=== PATIENT | female | born 1940 | race Hispanic/Latino ===

== ENCOUNTER 2017-08-19 21:58 | Emergency (ER) | payer OTHER ==
[2017-08-19 22:54] LABS: Absolute Lymphocytes (CBC) 1.9 K/uL (0.7-4.9); Absolute Monocytes 0.5 K/uL (0.1-1.3); Absolute Neutrophil 3.3 K/uL (1.8-8.0); Basophils % 0.5 % (0-1.3); Eosinophils % 3.4 % (0-4.4); Hematocrit 36.2 % (36.0-45.0); Lymphocytes % 32.4 % (15.3-44.8); MCH 25.8 pg (27.0-35.0); MCV 80.9 fL (80-100); Monocytes % 8.3 % (3.3-12.3); RBC Red Blood Cell Count 4.48 M/uL (3.86-4.86)
[2017-08-19 23:01] LABS: Protime INR 0.91
[2017-08-19 23:12] LABS: Albumin 3.6 g/dL (3.2-5.5); Bilirubin Direct 0.1 mg/dL (0-0.2); Bilirubin Total 0.2 mg/dL (0.3-1.2); Protein, Total 6.7 g/dL (6.0-8.3)
--- NOTE | 2017-08-19 23:54 | EDPHYS ---
Physician Documentation [facility] Name: Yesi Cantu Age: 77 yrs Sex: Female : 1940 Arrival Date: 08/19/2017 Time: 21:59 Bed 6 Private MD: ED Physician Pee Lakhani HPI: 08/19 22:42 This 77 yrs old Female presents to ER via Ambulatory with complaints of Chest jr8 Pain. 22:42 The patient or guardian reports chest pain that is located primarily in the anterior jr8 chest wall, right. Onset: acutely, today. The pain does not radiate. Associated signs and symptoms: The patient has no apparent associated signs or symptoms. The chest pain is described as sharp. Duration: The patient or guardian reports a single episode. Modifying factors: The symptoms are alleviated by nothing. the symptoms are aggravated by palpation of area. Severity of pain: At its worst the pain was moderate in the emergency department the pain has improved. The patient has not experienced similar symptoms in the past. The patient has not recently seen a physician. Patient stated that she started to feel right lower chest pain under right breast. Pain with movement and palpation. Denies trauma to region. Stated that she had lifted heavy objects the other day but did not feel a strain. Denies n/v, diaphoresis, or radiation of pain. Historical: - Allergies: 22:08 Aspirin; bp 22:08 Hydrocodone-Acetaminophen; bp 22:14 Azithromycin; bp 22:14 Sulfamethazine; bp 22:14 Ciprofloxacin; bp 22:14 Amoxicillin; bp 22:14 Sulfa (Sulfonamide Antibiotics); bp - Home Meds: 22:14 Synthroid 50 mcg Oral tab 1 tab once daily [Active]; metformin 500 mg Oral tab 1 tab 2 bp times per day [Active]; clopidogrel 75 mg oral tab 1 tab once daily [Active]; fenofibric acid 105 mg oral tab 1 tab once daily [Active]; sertraline 50 mg oral tab 1 tab twice a day [Active]; - PMHx: 22:08 Dementia; Diabetes - NIDDM; bp - Immunization history:: Adult Immunizations up to date. - Social history:: Smoking status: Patient/guardian denies using tobacco. ROS: 22:42 Eyes: Negative for injury, pain, redness, and discharge, ENT: Negative for injury, jr8 pain, and discharge, Neck: Negative for injury, pain, and swelling, Respiratory: Negative for shortness of breath, cough, wheezing, and pleuritic chest pain, Abdomen/GI: Negative for abdominal pain, nausea, vomiting, diarrhea, and constipation, Back: Negative for injury and pain, MS/Extremity: Negative for injury and deformity, Skin: Negative for injury, rash, and discoloration, Neuro: Negative for headache, weakness, numbness, tingling, and seizure. 22:42 Cardiovascular: Positive for chest pain, Negative for edema, orthopnea, palpitations, paroxysmal nocturnal dyspnea. Exam: 22:42 Eyes: Pupils equal round and reactive to light, extra-ocular motions intact. Lids and jr8 lashes normal. Conjunctiva and sclera are non-icteric and not injected. Cornea within normal limits. Periorbital areas with no swelling, redness, or edema. ENT: Nares patent. No nasal discharge, no septal abnormalities noted. Tympanic membranes are normal and external auditory canals are clear. Oropharynx with no redness, swelling, or masses, exudates, or evidence of obstruction, uvula midline. Mucous membranes moist. Neck: Trachea midline, no thyromegaly or masses palpated, and no cervical lymphadenopathy. Supple, full range of motion without nuchal rigidity, or vertebral point tenderness. No Meningismus. Cardiovascular: Regular rate and rhythm with a normal S1 and S2. No gallops, murmurs, or rubs. Normal PMI, no JVD. No pulse deficits. Respiratory: Lungs have equal breath sounds bilaterally, clear to auscultation and percussion. No rales, rhonchi or wheezes noted. No increased work of breathing, no retractions or nasal flaring. Abdomen/GI: Soft, non-tender, with normal bowel sounds. No distension or tympany. No guarding or rebound. No evidence of tenderness throughout. Back: No spinal tenderness. No costovertebral tenderness. Full range of motion. Skin: Warm, dry with normal turgor. Normal color with no rashes, no lesions, and no evidence of cellulitis. MS/ Extremity: Pulses equal, no cyanosis. Neurovascular intact. Full, normal range of motion. Neuro: Awake and alert, GCS 15, oriented to person, place, time, and situation. Cranial nerves II-XII grossly intact. Motor strength 5/5 in all extremities. Sensory grossly intact. Cerebellar exam normal. Normal gait. 22:42 Chest/axilla: Inspection: normal, Palpation: tenderness, that is moderate, of the right anterior chest wall just inferior to breast region . Vital Signs: 22:08 BP 137 / 65; Pulse 71; Resp 19; Temp 98.1; Pulse Ox 95% ; Weight 63.5 kg; Height 5 ft. bp 3 in. (160.02 cm); 22:45 BP 139 / 67; Pulse 72; Resp 18; Pulse Ox 95% ; bp 23:45 BP 148 / 72; Pulse 77; Resp 13; Pulse Ox 97% ; bp 22:08 Body Mass Index 24.80 (63.50 kg, 160.02 cm) bp MDM: 22:00 Patient medically screened. jr8 23:53 Data reviewed: vital signs, nurses notes, lab test result(s), EKG, radiologic studies, jr8 plain films, and as a result, I will discharge patient. Data interpreted: Pulse oximetry: on room air is 95 %. Interpretation: normal. Counseling: I had a detailed discussion with the patient and/or guardian regarding: the historical points, exam findings, and any diagnostic results supporting the discharge/admit diagnosis, lab results, radiology results, the need for outpatient follow up, a [employer], a family practitioner, to return to the emergency department if symptoms worsen or persist or if there are any questions or concerns that arise at home. 08/19 22:17 Order name: Basic Metabolic Panel; Complete Time: 23: [facility] 08/19 22:17 Order name: BNP; Complete Time: 23: 08/19 22:17 Order name: CBC with Diff; Complete Time: 23:05 08/19 22:17 Order name: LFT's; Complete Time: 23:14 08/19 22:17 Order name: Magnesium; Complete Time: 23:14 08/19 22:17 Order name: PT-INR; Complete Time: 23:05 08/19 22:17 Order name: Troponin (emerg Dept Use Only); Complete Time: 23:14 [facility] 08/19 22:17 Order name: XRAY Chest (1 view) [facility] 08/19 22:17 Order name: EKG; Complete Time: 22:27 08/19 22:17 Order name: Cardiac monitoring; Complete Time: 22:18 08/19 22:17 Order name: EKG - Nurse/Tech; Complete Time: :18 08/19 22:17 Order name: IV Saline Lock; Complete Time: :08/19 22:17 Order name: Labs collected and sent; Complete Time: :18 08/19 22:17 Order name: O2 Per Protocol; Complete Time: :08/19 22:17 Order name: O2 Sat Monitoring; Complete Time: : Administered Medications: No medications were administered Disposition: 08/19/17 23:54 Discharged to Home. Impression: Chest pain, unspecified. - Condition is Stable. - Discharge Instructions: Nonspecific Chest Pain, Chest Wall Pain. - Medication Reconciliation Form, Thank You Letter, Antibiotic Education, Prescription Opioid Use form. - Follow up: Private Physician; When: 2 - 3 days; Reason: Recheck today's complaints, Continuance of care, Re-evaluation by your physician. - Problem is new. - Symptoms have improved. Addendum: 08/21/2017 06:24 Co-signature as Attending Physician, Pee Lakhani MD. g s Signatures: Dispatcher [employer] EDMS Flo Quinn PA PA jr8 Pee Lakhani MD MD gs Peltier, Brian, RN RN bp
--- NOTE | 2017-08-19 23:54 | ER ---
Nurse's Notes [facility] Name: Yesi Cantu Age: 77 yrs Sex: Female : 1940 Arrival Date: 08/19/2017 Time: 21:59 Bed 6 Private MD: Diagnosis: Chest pain, unspecified Presentation: 08/19 22:06 Presenting complaint: Patient states: I WAS WALKING THE DOG AND THEN MY CHEST FELT bp TIGHT AND I COULDN'T CATCH MY BREATH. Transition of care: patient was not received from another setting of care. Onset of symptoms was August 19, 2017 at 15:00. Care prior to arrival: None. 22:06 Method Of Arrival: Ambulatory bp 22:06 Acuity: TOD 3 bp Triage Assessment: 22:08 General: Appears in no apparent distress. uncomfortable, well groomed, Behavior is bp calm, cooperative, appropriate for age. Pain: Complains of pain in right breast Also complains of shortness of breath. EENT: No deficits noted. Neuro: Level of Consciousness is awake, alert, obeys commands, Oriented to person, place, time, situation, Appropriate for age. Cardiovascular: Rhythm is sinus rhythm Chest pain is described as mild, is located in right began 3 hours prior to arrival. Respiratory: Reports shortness of breath at rest Airway is patent Respiratory effort is even, unlabored, Respiratory pattern is regular, symmetrical. GI: No signs and/or symptoms were reported involving the gastrointestinal system. : No signs and/or symptoms were reported regarding the genitourinary system. Derm: No deficits noted. Musculoskeletal: Circulation, motion, and sensation intact. Range of motion: intact in all extremities. Historical: - Allergies: 22:08 Aspirin; bp 22:08 Hydrocodone-Acetaminophen; bp 22:14 Azithromycin; bp 22:14 Sulfamethazine; bp 22:14 Ciprofloxacin; bp 22:14 Amoxicillin; bp 22:14 Sulfa (Sulfonamide Antibiotics); bp - Home Meds: 22:14 Synthroid 50 mcg Oral tab 1 tab once daily [Active]; metformin 500 mg Oral tab 1 tab 2 bp times per day [Active]; clopidogrel 75 mg oral tab 1 tab once daily [Active]; fenofibric acid 105 mg oral tab 1 tab once daily [Active]; sertraline 50 mg oral tab 1 tab twice a day [Active]; - PMHx: 22:08 Dementia; Diabetes - NIDDM; bp - Immunization history:: Adult Immunizations up to date. - Social history:: Smoking status: Patient/guardian denies using tobacco. Screenin:15 Abuse screen: Denies threats or abuse. Denies injuries from another. Nutritional bp screening: No deficits noted. Tuberculosis screening: No symptoms or risk factors identified. Fall Risk None identified. Assessment: 22:14 General: SEE TRIAGE NOTE. 77YO HF WITH H/O DEMENTIA AND NIDDM PRESENTS WITH CONSTANT bp "TIGHT" CP WITH SOB SINCE WALKING DOG. 22:15 Pain: Pain does not radiate. Pain began suddenly, 4 hours ago. bp 22:45 Reassessment: RADIOLOGY AT B/S. LAB RESULTS PENDING. VS STABLE ON MONITOR. bp 23:45 Reassessment: PT D/C HOME AMBULATORY WITH FAMILY, DX WITH UNSPECIFIC CHEST PAIN. bp Vital Signs: 22:08 BP 137 / 65; Pulse 71; Resp 19; Temp 98.1; Pulse Ox 95% ; Weight 63.5 kg; Height 5 ft. bp 3 in. (160.02 cm); 22:45 BP 139 / 67; Pulse 72; Resp 18; Pulse Ox 95% ; bp 23:45 BP 148 / 72; Pulse 77; Resp 13; Pulse Ox 97% ; bp 22:08 Body Mass Index 24.80 (63.50 kg, 160.02 cm) bp ED Course: 21:59 Patient arrived in ED. do 22:00 Craig Hutchinson, HO is Primary Nurse. bp 22:00 Flo Quinn PA is PHCP. jr8 22:00 Pee Lakhani MD is Attending Physician. jr8 22:07 Triage completed. bp 22:14 Arm band placed on. bp 22:15 Patient has correct armband on for positive identification. Placed in gown. Bed in low bp position. Call light in reach. Side rails up X2. Adult w/ patient. compliance monitor on. Pulse ox on. NIBP on. 22:15 Inserted saline lock: 20 gauge in right antecubital area, using aseptic technique. jb5 Blood collected. 22:57 X-ray completed. Portable x-ray completed in exam room. Patient tolerated procedure la2 well. 22:57 XRAY Chest (1 view) Sent. bp 23:01 XRAY Chest (1 view) In Process Unspecified. EDMS 23:45 No provider procedures requiring assistance completed. IV discontinued, intact, bp bleeding controlled, No redness/swelling at site. Pressure dressing applied. Patient maintains SpO2 saturation greater than 95% on room air. Administered Medications: No medications were administered Outcome: 23:54 Discharge ordered by MD. larson 08/20 00:00 Discharged to home ambulatory, with family. bp Condition: stable Discharge instructions given to patient, Instructed on discharge instructions, follow up and referral plans. Demonstrated understanding of instructions, follow-up care. 00:00 Patient left the ED. bp Signatures: Dispatcher [employer] EDMS Flo Quinn PA PA jr8 Tracy Cuellar Jennifer jb5 Ardoin, Leslie la2 Peltier, Brian, HO RN bp Corrections: (The following items were deleted from the chart) 08/19 22:18 22:08 63.5 kg; Height 5 ft. 3 in.; BMI: 24.8; bp bp
--- NOTE | 2017-08-20 10:11 | RAD REPORT ---
EXAM DESCRIPTION: RAD - Chest Single View - 08/19/2017 11:03 pm CLINICAL HISTORY: Chest pain COMPARISON: None. TECHNIQUE: AP portable chest image was obtained 2257 hours . FINDINGS: Lung volumes are relatively low accentuating lung markings. No consolidation, mass or sign ificant failure. Heart and vasculature are normal. No measurable pleural effusion and no pneumothorax . No gross bony abnormality seen. No acute aortic findings suspected. IMPRESSION: Shallow inspiration film felt to be without an acute cardiopulmonary finding.
--- NOTE | 2017-08-20 22:36 | EKG ---
Test Date: 2017-08-19 Test Time: 22:05:16 Tools Developer: LONNIE MEASUREMENT RESULTS: Intervals: Rate: 73 OH: 138 QRSD: 84 QT: 418 QTc: 460 [place]: P: 8 OH: 138 QRS: -4 T: 42 INTERPRETIVE STATEMENTS: Normal sinus rhythm Normal ECG No previous ECG available for comparison Electronically Signed On 08-20-17 22:35:40 CDT by Yao Beasley
== END 2017-08-20 | disposition home or self-care (01) ==
LOC: ER 21:58
DX: R07.9 Chest pain, unspecified (principal); E11.9 Type 2 diabetes mellitus without complications; F03.90 Unspecified dementia, unspecified severity, without behavioral disturbance, psychotic disturbance, mood disturbance, and anxiety; Z88.1 Allergy status to other antibiotic agents; Z88.2 Allergy status to sulfonamides; Z88.3 Allergy status to other anti-infective agents; Z88.5 Allergy status to narcotic agent; Z88.6 Allergy status to analgesic agent
CPT/HCPCS: 36415; 71045; 80048; 80076; 83735; 83880; 84484; 85025; 85610; 93005; 99285

== ENCOUNTER 2024-09-21 10:10 | Emergency (ER) | payer OTHER ==
[2024-09-21 11:06] LABS: Absolute Eosinophils 0.1 K/uL (0-0.5); Absolute Lymphocytes (CBC) 1.7 K/uL (0.7-4.9); Absolute Monocytes 0.6 K/uL (0.1-1.3); Basophils % 0.4 % (0-1.3); Eosinophils % 1.9 % (0-4.4); Hematocrit 35.9 % (36.0-45.0); Hemoglobin 12.4 g/dL (12.0-15.0); Lymphocytes % 26.5 % (15.3-44.8); MCH 30.1 pg (27.0-35.0); MCHC 34.5 g/dL (32.0-36.0); MCV 87.4 fL (80-100); MPV 8.3 fL (7.6-11.3); Monocytes % 9.3 % (3.3-12.3); Neutrophils % 61.9 % (41.7-73.7); Nucleated Red Blood Cells % 0.1 % (0-0); Platelets 205 thou/uL (152-406); RBC Red Blood Cell Count 4.11 M/uL (3.86-4.86)
[2024-09-21 11:13] LABS: PT Prothrombin Time 11.7 SECONDS (10-13.0); PTT, Activated Partial Thromb 34.8 SECONDS (27.2-37.4); Protime INR 1.03
[2024-09-21] MEDS ORDERED: NA CHLORIDE 0.9% 500 ML ONE (11:15)
[2024-09-21 11:24] LABS: ALT/SGPT 22 U/L (13-56); AST/SGOT 18 U/L (15-37); Albumin 3.5 g/dL (3.4-5.0); Albumin/Globulin Ratio 0.9 (1.1-1.8); Alkaline Phosphatase 74 U/L (45-117); Anion Gap 9.6 mEq/L (5.0-15.0); BUN Blood Urea Nitrogen 19 mg/dL (7-18); Bicarbonate 29 mEq/L (21-32); Bilirubin Total 0.4 mg/dL (0.2-1.0); Globulin 3.7 g/dL (2.3-3.5); Glomerular Filtration Rate 72 ml/min (=/>90); Glucose Level 98 mg/dL (74-106); Magnesium 2.1 mg/dL (1.6-2.4); Potassium 3.6 mEq/L (3.5-5.1); Protein, Total 7.2 g/dL (6.4-8.2); Sodium Level 142 mEq/L (136-145); Troponin High Sensitivity 5.4 pg/mL (<58.9)
[2024-09-21 11:25] LABS: Bilirubin Direct < 0.2 mg/dL (0-0.2); Bilirubin Indirect, Calculated 0.2 mg/dL (0.2-0.8)
--- NOTE | 2024-09-21 11:53 | RAD REPORT ---
EXAM: Chest Single View HISTORY: 84 years Female dizziness COMPARISON: 08/19/2017 FINDINGS: LUNGS/PLEURA: The lungs are clear. No pleural effusions or pneumothorax. No pulmonary edema. CARDIAC/MEDIASTINUM: The cardiac silhouette is within normal limits. UPPER ABDOMEN: No significant abnormality. BONES: No acute abnormality. LINES/TUBES/OTHER: N/A IMPRESSION: No evidence of acute cardiopulmonary disease.
--- NOTE | 2024-09-21 12:11 | RAD REPORT ---
EXAMINATION: Head Brain Wo Cont CLINICAL INDICATION: Female, 84 years old.DIZZINESS TECHNIQUE: Axial CT images from the skull base to the vertex without intravenous contrast. Coronal an d sagittal reformatted images were created from the data set. One or more of the following dose reduction techniques were used: Automated exposure control, adjustment of the mA and/or kV according to patient size, and/or iterative reconstruction. Unless otherwise specified, incidental findings do not require dedicated imaging follow-up. [id number]. COMPARISON: No prior exam. FINDINGS: INTRACRANIAL: No acute intracranial hemorrhage. No hydrocephalus. No mass effect or midline shift. No significant white matter disease. VASCULATURE: No visualized abnormalities in the arteries or dural venous sinuses. SCALP/SKULL: No calvarial fracture identified. No acute soft tissue abnormality. SINUSES: The visualized paranasal sinuses are mostly clear. No significant mastoid fluid. IMPRESSION: No acute intracranial abnormality.
--- NOTE | 2024-09-21 12:13 | RAD REPORT ---
EXAMINATION: Neck Angio CLINICAL INDICATION: Female, 84 years old. dizziness TECHNIQUE: Axial CT images were obtained from the aortic arch to the skull base after intravenous con trast utilizing angiographic protocol with 3D post-processing (maximum intensity projection images, volume rendered images and/or shaded surface rendered images). One or more of the following dose redu ction techniques were used: Automated exposure control, adjustment of the mA and/or kV according to patient size, and/or iterative reconstruction. Unless otherwise specified, incidental findings do not require dedicated imaging follow-up. [id number]. NASCET criteria used. Mild 0-49% stenosis Moderate 50-69% stenosis Severe 70-99% stenosis COMPARISON: No prior exam. FINDINGS: AORTA: Normal RIGHT: - CCA: Patent - ICA: Patent - ECA: Patent LEFT: - CCA: Patent - ICA: Atherosclerotic changes but no flow limiting stenosis. - ECA: Patent VERTEBRAL: Right dominant. Both are patent. SOFT TISSUE: No significant neck soft tissue abnormalities. The visualized lung apices are clear. 3D images confirm these findings. IMPRESSION: No arterial dissection or stenosis identified within the neck.
--- NOTE | 2024-09-21 12:14 | RAD REPORT ---
EXAMINATION: Head angio CLINICAL INDICATION: Female, 84 years old. DIZZINESS TECHNIQUE: Axial CT images were obtained through the head after intravenous contrast utilizing angiog raphic protocol with 3D post-processing (maximum intensity projection images, volume rendered images and/or shaded surface rendered images). One or more of the following dose reduction technique s were used: Automated exposure control, adjustment of the mA and/or kV according to patient size, and/or iterative reconstruction. Unless otherwise specified, incidental findings do not require dedic ated imaging follow-up. COMPARISON: No prior exam. FINDINGS: Some venous contamination present. RIGHT: ICA: Patent JORY: Patent MCA: Patent JOB ORDER CLERK: Patent -type JOB ORDER CLERK. LEFT: ICA: Patent JORY: Patent MCA: Patent JOB ORDER CLERK: Patent -type JOB ORDER CLERK. Vertebrobasilar: The vertebral arteries are patent. The basilar artery is normal in appearance. 3D images confirm these findings. IMPRESSION: No occlusion, aneurysm, or hemodynamically significant stenosis identified.
--- NOTE | 2024-09-21 12:24 | EDPHYS ---
Physician Documentation [facility] Name: Yesi Cantu Age: 84 yrs Sex: Female : 1940 Arrival Date: 09/21/2024 Time: 10:10 Bed 4 Private MD: ED Physician Lester Whelan HPI: 09/21 11:01 This 84 yrs old Female presents to ER via Ambulatory with complaints of rn Dizziness. 11:01 The patient presents with dizziness. Onset: The symptoms/episode began/occurred 1 rn week(s) ago. Modifying factors: The symptoms are alleviated by nothing, the symptoms are aggravated by standing up, changing position. Severity of symptoms: At their worst the symptoms were moderate in the emergency department the symptoms have resolved. The patient has not experienced similar symptoms in the past. Patient reports intermittent episodes of dizziness, over the last week. Last episode of dizziness was yesterday. Denies syncope. Denies focal neurological deficit. Patient states worse when standing up and changing position. No head injury or headache. No vision changes. No speech changes. Patient states has been waiting a week and was not really concerned but then she saw a TV special about dizziness so came in to make sure she was okay. Denies any current symptoms or dizziness. Denies any changes in medication. No blood in stool or dark stool.. Historical: - Allergies: 10:19 Aspirin; ll1 10:19 Sulfamethazine; ll1 10:19 Azithromycin; ll1 10:19 Ciprofloxacin; ll1 10:19 Amoxicillin; ll1 - PMHx: 10:19 Dementia; Diabetes - NIDDM; Hypothyroidism; ll1 - Immunization history:: Adult Immunizations up to date. - Infectious Disease History:: Denies. - Social history:: Smoking status: Patient denies any tobacco usage or history of. - Family history:: not pertinent. - Hospitalizations: : No recent hospitalization is reported. ROS: 11:01 Constitutional: Negative for fever, chills, and weight loss, Neck: Negative for injury, rn pain, and swelling, Cardiovascular: Negative for chest pain, palpitations, and edema, Respiratory: Negative for shortness of breath, cough, wheezing, and pleuritic chest pain, Abdomen/GI: Negative for abdominal pain, nausea, vomiting, diarrhea, and constipation, MS/Extremity: Negative for injury and deformity, Skin: Negative for injury, rash, and discoloration, Neuro: Negative for headache, weakness, numbness, tingling, and seizure, Exam: 10:54 ECG was reviewed by the Attending Physician. rn 11:01 Constitutional: This is a well developed, well nourished patient who is awake, alert, rn and in no acute distress. Head/Face: Normocephalic, atraumatic. ENT: Dry mucous membranes Neck: Trachea midline, no masses palpated, and no cervical lymphadenopathy. Supple, full range of motion without nuchal rigidity, or vertebral point tenderness. No Meningismus. Cardiovascular: Regular rate and rhythm. No pulse deficits. Respiratory: No increased work of breathing, no retractions or nasal flaring. Abdomen/GI: Soft, non-tender MS/ Extremity: Pulses equal, no cyanosis. Neurovascular intact. Full, normal range of motion. Equal circumference. Neuro: Awake and alert, GCS 15, oriented to person, place, time, and situation. Cranial nerves II-XII grossly intact. Motor strength 5/5 in all extremities. Sensory grossly intact. Cerebellar exam normal. Normal gait. Vital Signs: 10:32 BP 127 / 68; Pulse 72; Resp 16; Temp 97.5; Pulse Ox 99% ; Weight 54.43 kg; Height 5 ft. ll1 3 in. ; Pain 0/10; 11:07 BP 112 / 68 Supine; Pulse 65; em1 11:07 BP 102 / 60 Sitting; Pulse 69; em1 11:08 BP 102 / 62 Standing; Pulse 75; em1 10:32 Body Mass Index 21.26 (54.43 kg, 160.02 cm) ll1 10:32 Pain Scale: Adult ll1 MDM: 10:18 Medical Screening Exam initiated rn 12:22 Differential diagnosis: cardiac arrhythmia, generalized weakness, GI bleed, rn hypovolemia, idiopathic dizziness, near-syncope, TIA, vertigo. Data reviewed: vital signs, nurses notes, lab test result(s), EKG, radiologic studies, CT scan, plain films, and as a result, I will discharge patient. Counseling: I had a detailed discussion with the patient and/or guardian regarding the historical points, exam findings, and any diagnostic results supporting the discharge/admit diagnosis, lab results, radiology results, the need for outpatient follow up, to return to the emergency department if symptoms worsen or persist or if there are any questions or concerns that arise at home. Special discussion: I discussed with the patient/guardian in detail that at this point there is no indication for admission to the hospital. It is understood, however, that if the symptoms persist or worsen the patient needs to return immediately for re-evaluation. Based on the history and exam findings, there is no indication for further emergent testing or inpatient evaluation. I discussed with the patient/guardian the need to see the primary care provider for further evaluation of the symptoms. 09/21 10:38 Order name: Basic Metabolic Panel; Complete Time: 09/21 10:38 Order name: CBC with Diff; Complete Time: 09/21 10:38 Order name: Hepatic Function; Complete Time: 09/21 10:38 Order name: Magnesium; Complete Time: 09/21 10:38 Order name: Protime (+inr); Complete Time: 09/21 10:38 Order name: Ptt, Activated; Complete Time: 09/21 10:38 Order name: Troponin High Sensitivity; Complete Time: 09/21 10:38 Order name: CT Head Brain wo Cont; Complete Time: :09/21 10:38 Order name: Chest Single View XRAY; Complete Time: 09/21 10:38 Order name: Head Angio CT; Complete Time: :09/21 10:38 Order name: Neck Angio CT; Complete Time: :09/21 10:38 Order name: Cardiac monitoring; Complete Time: :09/21 10:38 Order name: EKG - Nurse/Tech; Complete Time: 10:09/21 10:38 Order name: IV Saline Lock; Complete Time: :09/21 10:38 Order name: Labs collected and sent; Complete Time: :09/21 10:38 Order name: O2 Per Protocol; Complete Time: 09/21 10:38 Order name: O2 Sat Monitoring; Complete Time: 09/21 10:38 Order name: Orthostatics; Complete Time: 11: rn EC:54 Rate is 64 beats/min. Rhythm is regular. QRS [place] is Normal. NH interval is normal. QRS rn interval is normal. QT interval is normal. No Q waves. T waves are Normal. No ST changes noted. Clinical impression: NSR w/ Non-specific ST/T Changes. Interpreted by me. Reviewed by me. Administered Medications: 11:18 Drug: NS 0.9% IV 500 ml IV at bolus once; to be given as a bolus over 30 minutes Route: kc6 IV; Rate: bolus; Site: right antecubital; Disposition Summary: 09/21/24 12:23 Discharge Ordered Notes: Location: Home rn Problem: new rn Symptoms: have improved rn Condition: Stable rn Diagnosis - Dizziness and giddiness rn Followup: rn - With: Private Physician - When: As needed - Reason: Recheck today's complaints, Re-evaluation by your physician Discharge Instructions: - Discharge Summary Sheet rn - Dizziness rn Forms: - Medication Reconciliation Form rn - Antibiotic sourcing intern - Prescription Opioid Use rn - Patient Portal Instructions rn - Leadership Thank You Letter rn Signatures: Dispatcher [employer] EDMS Lester Whelan MD MD rn Lewis, Lynsay, RN RN ll1 Bretha Jacobs RN RN kc6 Corrections: (The following items were deleted from the chart) 10:38 10:38 BASIC METABOLIC PANEL+C.LAB.BRZ ordered. EDMS EDMS 10:38 10:38 CBC+H.LAB.BRZ ordered. EDMS EDMS 10:38 10:38 HEPATIC FUNCTION+C.LAB.BRZ ordered. EDMS EDMS 10:38 10:38 MAGNESIUM+C.LAB.BRZ ordered. EDMS EDMS 10:38 10:38 PROTIME (+INR)+COAG.LAB.BRZ ordered. EDMS EDMS 10:38 10:38 PTT, ACTIVATED+COAG.LAB.BRZ ordered. EDMS EDMS 10:38 10:38 Troponin High Sensitivity+C.LAB.BRZ ordered. EDMS EDMS 10:38 10:38 Head Brain Wo Cont+CT.RAD.BRZ ordered. EDMS EDMS 10:39 10:39 Chest Single View+RAD.RAD.BRZ ordered. EDMS EDMS 10:39 10:39 Head Angio+CT.RAD.BRZ ordered. EDMS EDMS 10:39 10:39 Neck Angio+CT.RAD.BRZ ordered. EDMS EDMS
--- NOTE | 2024-09-21 12:24 | ER ---
Nurse's Notes [facility] Name: Yesi Cantu Age: 84 yrs Sex: Female : 1940 Arrival Date: 09/21/2024 Time: 10:10 Bed 4 Private MD: Diagnosis: Dizziness and giddiness Presentation: 09/21 10:32 Chief complaint: Patient states: Dizziness for 3 days. Coronavirus screen: Client ll1 denies travel out of the [place] in the last 14 days. At this time, the client does not indicate any symptoms associated with coronavirus-19. Ebola Screen: Patient denies travel to an Ebola-affected area in the 21 days before illness onset. Initial Sepsis Screen: Does the patient meet any 2 criteria? No. Patient's initial sepsis screen is negative. Does the patient have a suspected source of infection? No. Patient's initial sepsis screen is negative. Risk Assessment: Do you want to hurt yourself or someone else? Patient reports no desire to harm self or others. Onset of symptoms was September 19, 2024. 10:32 Method Of Arrival: Ambulatory ll1 10:32 Acuity: TOD 3 ll1 Triage Assessment: 10:33 General: Appears in no apparent distress. Behavior is calm, cooperative, appropriate ll1 for age. Pain: Denies pain. Neuro: Reports dizziness. Historical: - Allergies: 10:19 Aspirin; ll1 10:19 Sulfamethazine; ll1 10:19 Azithromycin; ll1 10:19 Ciprofloxacin; ll1 10:19 Amoxicillin; ll1 - PMHx: 10:19 Dementia; Diabetes - NIDDM; Hypothyroidism; ll1 - Immunization history:: Adult Immunizations up to date. - Infectious Disease History:: Denies. - Social history:: Smoking status: Patient denies any tobacco usage or history of. - Family history:: not pertinent. - Hospitalizations: : No recent hospitalization is reported. Screenin:52 [facility] ED Fall Risk Assessment (Adult) History of falling in the last 3 months, kc6 including since admission No falls in past 3 months (0 pts) Confusion or Disorientation No (0 pts) Intoxicated or Sedated No (0 pts) Impaired Gait No (0 pts) Mobility Assist Device Used No (0 pt) Altered Elimination No (0 pt) Score/Fall Risk Level 0 - 2 = Low Risk Oriented to surroundings. Abuse screen: Denies threats or abuse. Denies injuries from another. Nutritional screening: No deficits noted. Tuberculosis screening: No symptoms or risk factors identified. Assessment: 11:11 General: Appears in no apparent distress. comfortable, well groomed, well developed, kc6 Behavior is calm, cooperative, appropriate for age. Pain: Denies pain. Neuro: Level of Consciousness is awake, alert, obeys commands, Oriented to person, place, time, situation, Appropriate for age [place] are equal bilaterally Moves all extremities. Full function Gait is steady, Speech is normal, Facial symmetry appears normal, Facial symmetry: tongue is midline, Pupils are PERRLA, Intact Reports dizziness, Denies weakness blurred vision numbness headache. Cardiovascular: Capillary refill < 3 seconds. Respiratory: Airway is patent Trachea midline Respiratory effort is even, unlabored, Respiratory pattern is regular, symmetrical. GI: No signs and/or symptoms were reported involving the gastrointestinal system. : No signs and/or symptoms were reported regarding the genitourinary system. EENT: No signs and/or symptoms were reported regarding the EENT system. Derm: No signs and/or symptoms reported regarding the dermatologic system. Skin is intact, is healthy with good turgor, Skin is pink, warm \T\ dry. Musculoskeletal: No signs and/or symptoms reported regarding the musculoskeletal system. Circulation, motion, and sensation intact. Range of motion: intact in all extremities. 12:08 Reassessment: Patient appears in no apparent distress at this time. No changes from kc6 previously documented assessment. Patient and/or family updated on plan of care and expected duration. Pain level reassessed. Patient is alert, oriented x 3, equal unlabored respirations, skin warm/dry/pink. Vital Signs: 10:32 BP 127 / 68; Pulse 72; Resp 16; Temp 97.5; Pulse Ox 99% ; Weight 54.43 kg; Height 5 ft. ll1 3 in. ; Pain 0/10; 11:07 BP 112 / 68 Supine; Pulse 65; em1 11:07 BP 102 / 60 Sitting; Pulse 69; em1 11:08 BP 102 / 62 Standing; Pulse 75; em1 10:32 Body Mass Index 21.26 (54.43 kg, 160.02 cm) ll1 10:32 Pain Scale: Adult ll1 ED Course: 10:15 Patient arrived in ED. sj2 10:18 Lester Whelan MD is Attending Physician. rn 10:19 Arm band placed on Patient placed in an exam room, on a stretcher. ll1 10:32 Bertha Jacobs, RN is Primary Nurse. kc6 10:33 Triage completed. ll1 10:52 Patient has correct armband on for positive identification. Bed in low position. Call kc6 light in reach. Side rails up X2. Adult w/ patient. child monitor on. Pulse ox on. NIBP on. Door closed. Noise minimized. Lights dimmed. Warm blanket given. Pillow given. Verbal reassurance given. 10:52 EKG done, by ED staff, reviewed by Lester Whelan MD. em1 10:52 Initial lab(s) drawn, by me, sent to lab. Inserted saline lock: 20 gauge in right [facility] antecubital area, using aseptic technique. Blood collected. Flushed with 10 mL NS. Patient maintains SpO2 saturation greater than 95% on room air. 11:40 Chest Single View XRAY In Process Unspecified. EDMS 12:10 CT Head Brain wo Cont In Process Unspecified. EDMS 12:[address] In Process Unspecified. EDMS 12:[address] In Process Unspecified. EDMS 12:40 No provider procedures requiring assistance completed. IV discontinued, intact, kc6 bleeding controlled, No redness/swelling at site. Pressure dressing applied. Administered Medications: 11:18 Drug: NS 0.9% IV 500 ml IV at bolus once; to be given as a bolus over 30 minutes Route: kc6 IV; Rate: bolus; Site: right antecubital; Medication: 12:40 VIS not applicable for this client. kc6 Outcome: 12:23 Discharge ordered by . rn 12:40 Discharged to home via wheelchair, with significant other, kc6 12:40 Condition: improved 12:40 Discharge instructions given to patient, significant other, Instructed on discharge instructions, follow up and referral plans. Demonstrated understanding of instructions, follow-up care, 12:40 Patient left the ED. kc6 Signatures: Dispatcher [employer] EDMS Lester Whelan MD MD rn Martinez, Eric em1 Luanne Hu RN RN ll1 Bertha Jacobs RN RN kc6 Mohamud Robert sj2
[2024-09-21 12:49] VITALS: TEMP 97.5; O2SAT 99
[2024-09-21 12:53] VITALS: BP 102/62
--- NOTE | 2024-09-23 16:47 | EKG ---
Test Date: 2024-09-21 Test Time: 10:50:32 [employer]ational [employer] Director: SCOOBY MEASUREMENT RESULTS: Intervals: Rate: 64 ND: 164 QRSD: 84 QT: 398 QTc: 410 [place]: P: 54 ND: 164 QRS: -10 T: 41 INTERPRETIVE STATEMENTS: Normal sinus rhythm Low voltage QRS Borderline ECG Compared to ECG 08/19/2017 22:05:16 Low QRS voltage now present Electronically Signed On 09-23-24 16:45:12 CDT by Jericho Jones
== END 2024-09-21 12:40 | disposition home or self-care (01) ==
LOC: ER 10:10
DX: R42 Dizziness and giddiness (principal); E11.9 Type 2 diabetes mellitus without complications; E03.9 Hypothyroidism, unspecified
CPT/HCPCS: 93005; 85025; 80048; 36415; 83735; 85610; 80076; 85730; 84484; 70450; 70496; 70498; 71045; 99285; Q9967; J7040